=== PATIENT | female | born 1940 ===

== ENCOUNTER 2021-08-19 10:29 | Outpatient (CLI) | payer OTHER | END 2021-08-19 10:32 | disposition home or self-care (01) | LOC: SONOGRAMA 10:29 | PROVIDERS: ATTEND Pathology Anatomic Pathology & Clinical Pathology | DX: C76.8 Malignant neoplasm of other specified ill-defined sites (principal); C77.9 Secondary and unspecified malignant neoplasm of lymph node, unspecified ==